=== PATIENT | male | born 1995 | race Caucasian/White ===

== ENCOUNTER 2018-10-23 21:14 | Emergency (ER) | payer OTHER ==
[~2018-10-23] VITALS: Ht 185.4 cm; Wt 63.5 kg
[2018-10-23 21:17] VITALS: BP 130/76
--- NOTE | 2018-10-23 21:20 | NUR ---
TO LOBBY A/W BED AMBULATORY
--- NOTE | 2018-10-23 21:20 | NUR ---
23 Y/O MALE PRESENTS TO ED WITH C/O SOB/DYAPSNEA X1 HR. PT HAS HX OF ASTHMA. STATES OUT OF HOME MEDS X1 WEEK. ACUTE EXACERBATION. AUDIBLE WHEEZING AND PRODUCTIVE COUGH. BILAT UPPER LOBES WHEEZING INSPIRATORY/EXPIRATORY. O2SAT 97% @RA. PT HAS LABORED SPEECH WITH SOB. ALERT TO NAME PLACE TIME AND EVENT. ER MD AWARE. POSITOINED IN BED WITH HOB AT 90 DEGREES. X2 SIDE RAIL UP FOR SAFETY. CONTINUE TO MONITOR.
[2018-10-23] MEDS ORDERED: methylPREDNISolone SS 125 MG/2 ML VIAL IM ONE (21:35)
[2018-10-23] MEDS ORDERED: ALBUTEROL SULFATE/IPRATROPIU 3 ML SOL IH ONE (21:35)
[2018-10-23] MEDS ORDERED: ALBUTEROL 0.083% 2.5 MG/3 ML NEBU INH ONE (21:50)
--- NOTE | 2018-10-23 22:00 | NUR ---
BREATHING TREATMENTS EFFECTIVE. PT LUNGS MOVING AIR. WHEEZING HEARD THROUGHOUT BUT PT STATES RELIEF. O2SAT 99%@RA. NO LABORED SPEECH. CONTINUE TO MONITOR.
[2018-10-23 23:05] VITALS: BP 122/78
--- NOTE | 2018-10-23 23:05 | NUR ---
DISCHARGE PAPERS GIVEN TO PT. PT STATES RELIEF. NO SOB/DYSPNEA. SPEECH CLEAR. VSS. RX OF PREDNISONE AND ALBUTEROL GIVEN. SIDE EFFECTS EXPLAINED. INSTRUCTED TO F/U WITH PCP AND WHEN TO RETURN TO ER. PT VERBALLIZED UNDERSTANDING OF DC INSTRUCTIONS. ALL QUESTIONS ANSWSERED.
== END 2018-10-23 23:05 | disposition home or self-care (01) ==
LOC: MED 21:14
DX: J45.901 Unspecified asthma with (acute) exacerbation (principal); F17.210 Nicotine dependence, cigarettes, uncomplicated; Z71.6 Tobacco abuse counseling
CPT/HCPCS: 94640; 96372; 99284; J2930; J7613; J7620; 94644

== ENCOUNTER 2019-07-21 01:50 | Emergency (ER) | payer OTHER ==
[~2019-07-21] VITALS: Ht 185.4 cm; Wt 83.9 kg
[2019-07-21 01:56] VITALS: BP 114/89
--- NOTE | 2019-07-21 02:01 | NUR ---
AMBULATED TO BED 12. PT DOES NOT MEET COVID CRITERIA.
[2019-07-21] MEDS ORDERED: NACL 0.9% 1,000 ML IV ONE (02:05)
[2019-07-21] MEDS ORDERED: MAG SULF 2000 MG/WATER PREMIX 50 ML IV ONE (02:05)
[2019-07-21] MEDS ORDERED: methylPREDNISolone SS 125 MG/2 ML VIAL IVP ONE (02:05)
[2019-07-21] MEDS ORDERED: ALBUTEROL SULFATE/IPRATROPIU 3 ML SOL IH ONE (02:05)
--- NOTE | 2019-07-21 02:05 | NUR ---
24m BIBA C/O SOB STARTED YESTERDAY. PT SAID HE BEGAN FEELING SOB WHILE SITTING IN HIS CAR. EXPIRATORY RHONCHI ON BILATERAL BASES. NO CHEST PAIN. NO LOC. DENIES N/V/D HX: ASTHMA, SMOKER NKA
[2019-07-21] MEDS ORDERED: ALBUTEROL 0.083% 2.5 MG/3 ML NEBU INH ONE ×2 (02:21→02:25)
--- NOTE | 2019-07-21 02:36 | NUR ---
RT AT BEDSIDE PERFORMING RESPIRATORY CARE.
--- NOTE | 2019-07-21 02:37 | NUR ---
NS BOLUS, MAG SULFATE INFUSION INITIATED ON L AC 18G IV. SOLUMEDROL ADMINISTERED. PT TOLERATED WELL.
--- NOTE | 2019-07-21 02:42 | NUR ---
PER NADYA LIRA TO CHANGE RATE OF MAG INFUSION TO 120ML/HR
--- NOTE | 2019-07-21 03:05 | NUR ---
PT IS SLIGHTLY TACHYCARDIC AT 105-106BPM. INSTRUCTED TO TAKE DEEP BREATHS AND RELAX. HR DECREASED TO 97-99 RANGE. NO FURTHER NEEDS AT THIS TIME. BED LOWEST AND LOCKED, RAILS X 2
--- NOTE | 2019-07-21 03:33 | NUR ---
Patient discharged with v/s stable. Written and verbal after care instructions given and explained. Patient alert, oriented and verbalized understanding of instructions. Ambulatory with steady gait. All questions addressed prior to discharge. ID band removed. Patient advised to follow up with PMD. Rx of prednisone, albuterol, azithromycin given. Patient educated on indication of medication including possible reaction and side effects. Opportunity to ask questions provided and answered.
--- NOTE | 2019-07-21 03:37 | NUR ---
currently waiting on approval for a taxi voucher for patient transport.
[2019-07-21 03:38] VITALS: BP 126/72
== END 2019-07-21 03:38 | disposition home or self-care (01) ==
LOC: MED 01:50
DX: J20.9 Acute bronchitis, unspecified (principal); F17.200 Nicotine dependence, unspecified, uncomplicated; J45.909 Unspecified asthma, uncomplicated
CPT/HCPCS: 94640; 96365; 96375; 99284; J2930; J3475; J7613